=== PATIENT | male | born 1985 | race Two or more races ===

== ENCOUNTER 2019-04-16 14:15 | Emergency (ER) | payer SELFPAY ==
[2019-04-16 14:22] VITALS: BP 137/78
--- NOTE | 2019-04-16 14:57 | ER Document Report ---
ED Medical Screen (RME) - General Chief Complaint: Finger Injury Stated Complaint: FINGER INJURY Time Seen by Provider: 04/16/19 14:54 Mode of Arrival: Ambulatory Information source: Patient Notes: 33-year-old male presented to ED for injury to the left middle finger. 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 He states tetanus was last at 3 years ago. States he does not smoke drink or use any drugs. Has feeling to the tip of the finger and is under control at this time. Get x-rays at this time. Denies any past m edical or surgical history I have greeted and performed a rapid initial assessment of this patient. A comprehensive ED assessment and evaluation of the patient, analysis of test results and completion of medical decision making process will be conducted by an additional ED providers. - Related Data Allergies/Adverse Reactions: No Known Allergies Allergy (Unverified 04/16/19 14:48) Physical Exam - Vital signs Vitals: Temp Pulse Resp BP Pulse Ox 98.8 F 72 18 137/78 H 99 04/16/19 14:22 04/16/19 14:22 04/16/19 14:22 04/16/19 14:22 04/16/19 14:22 Course - Vital Signs Vital signs: Temp Pulse Resp BP Pulse Ox 98.8 F 72 18 137/78 H 99 04/16/19 14:22 04/16/19 14:22 04/16/19 14:22 04/16/19 14:22 04/16/19 14:22
--- NOTE | 2019-04-16 15:14 | RADIOLOGY REPORT (SQ) ---
EXAM DESCRIPTION: FINGER LEFT COMPLETED DATE/TIME: 04/16/2019 3:06 pm REASON FOR STUDY: Laceration left middle finger with Skil saw COMPARISON: None. NUMBER OF VIEWS: Three views. TECHNIQUE: AP, lateral, and oblique images acquired of the left third finger. LIMITATIONS: Overlying dressing. FINDINGS: MINERALIZATION: Normal. BONES: There is a fracture of the tuft of the 3rd digit. SOFT TISSUES: No soft tissue swelling. No foreign body. OTHER: No other significant finding. IMPRESSION: Fracture at the tuft of the 3rd digit. TECHNICAL DOCUMENTATION: JOB ID: [id number] [employer]- All Rights Reserved Reading location - IP/workstation name: [email or web address]
[2019-04-16] MEDS ORDERED: LIDOCAINE 1% INJ-PF (10 MG/ML) 30 ML SDV INJ ONE (16:28)
--- NOTE | 2019-04-16 16:33 | ER Document Report ---
HPI - HPI Time Seen by Provider: 04/16/19 14:54 Context: 33-year-old [id number] male presents to the emergency department for injury to his left middle finger. He was using a skill saw at work when he cut his finger. Patient states his last tetanus was 3 years ago. Patient states th at he does have feeling to his finger and is able to flex and extend the DIP. No other complaints. - REPRODUCTIVE Reproductive: DENIES: : Past Medical History - General Information source: Patient - Social History Smoking Status: Never Smoker Chew tobacco use (# tins/day): No Frequency of alcohol use: None Drug Abuse: None Family History: None Patient has suicidal ideation: No Patient has homicidal ideation: No Vertical Provider Document - CONSTITUTIONAL Notes: PHYSICAL EXAMINATION: Reviewed vital signs and charting by RN GENERAL: Alert, interacts well. No acute distress. HEAD: Normocephalic, atraumatic. EYES: Pupils equal and round. Extraocular movements intact. ENT: Oral mucosa moist, tongue midline. NECK: Full range of motion. Trachea midline. LUNGS: Clear to auscultation bilaterally, no wheezes, rales, or rhonchi. No respiratory distress. HEART: Regular rate and rhythm. No murmur ABDOMEN: soft, non-tender. No distention. Bowel sounds present EXTREMITIES: Moves all 4 extremities spontaneously. Laceration to the tip of the left middle finger not actively bleeding, patient is able to flex and extend the DIP actively and against resistance. PSYCH: Normal affect, normal mood. SKIN: Warm, dry, normal turgor. No rashes or lesions noted. Course - Re-evaluation Re-evalutation: 04/16/19 16:31 Patient with a left middle finger tuft fracture. Plan to close the wound via primary closure and place him on prophylactic antibiotics. 04/16/19 17:52 Wound was closed with 5-0 Ethilon after anesthetizing using a digital block of the left middle finger. Patient was difficult to anesthetize and it required repeated attempts until we achieve satisfactory anesthesia. After that patient tolerated procedure well. Martti was used and 1 of the [place]ian-speaking PCT's was used for follow-up instructions, guidance, wound care. Patient understood everything and is stable for discharge with instructions to follow-up with orthopedics in the next 3 to 5 days. - Vital Signs Vital signs: Temp Pulse Resp BP Pulse Ox 98.8 F 72 18 137/78 H 99 04/16/19 14:22 04/16/19 14:22 04/16/19 14:22 04/16/19 14:22 04/16/19 14:22 Procedures - Laceration/Wound Repair Left Finger 3rd digit Wound length (cm): 3 Wound's Depth, Shape: Irregular Laceration pre-procedure: Sterile PPE donned Anesthetic type: 1% Lidocaine Wound explored: Contaminated Irrigated w/ Saline (mLs): 1,000 Wound Debrided: Minimal Wound Repaired With: Sutures Suture Size/Type: 5:0, Ethilon Discharge - Discharge Clinical Impression: Open fracture of tuft of distal phalanx of finger Condition: Good Disposition: HOME, SELF-CARE Additional Instructions: You were seen for a work-related injury. You have what is called a tuft fracture of your left middle finger. This is when the tip of your finger is fractured. We have repaired your finger with stitches. Please take the antibiotics you were prescribed twice a day for 7 days. You can take Motrin and/or Tylenol for pain. Please follow-up with orthopedics in the next 3 to 5 days. Also, your finger was placed in a splint and you need to wear it for the next 4 to 6 weeks. You should be able to work as long as you are wearing the splint. Please return to the emergency department if you completely lose sensation of your finger, you have worsening pain, your fingers starts to turn black or blue, or you have any other concerning symptoms. Te vieron por madelaine lesin relacionada con el trabajo. Tiene lo que se llama fractura de mechn del dedo medio ronal. [place] es cuando la punta de graf dedo est fracturada. Hemos reparado graf dedo con puntos de sutura. [place] los antibiticos que le recetaron dos veces al da gabriel 7 howell. Puede ulises Motrin y / o Tylenol para el dolor. Gerri un seguimiento con ortopedia en los prximos 3 a 5 howell. Adems, graf dedo se coloc en madelaine frula y debe usarlo gabriel las prximas 4 a 6 semanas. Debera poder trabajar mientras lleve la frula. Regrese al departamento de emergencias si pierde por completo la sensacin de graf dedo, si empeora el dolor, rico dedos comienzan a ponerse negros o azules, o tiene cualquier otro sntoma preocupante. Prescriptions: Doxycycline Hyclate 100 mg PO BID #14 capsule Referrals: REMY BUNN JR, DO [ACTIVE PROVISIONAL STAFF] - Follow up in 3-5 days
[2019-04-16] MEDS ORDERED: DOXYCYCLINE HYCLATE 100 MG TABLET PO ONE (17:55)
== END 2019-04-16 18:21 | disposition home or self-care (01) ==
LOC: ER 14:15
PROC: 0HQGXZZ Repair Left Hand Skin, External Approach (ICD-10-PCS; principal; 2019-04-16)
DX: S62.633B Displaced fracture of distal phalanx of left middle finger, initial encounter for open fracture (principal); W29.8XXA Contact with other powered hand tools and household machinery, initial encounter
CPT/HCPCS: 99283